=== PATIENT | female | born 1955 | race Caucasian/White ===

== ENCOUNTER 2018-11-13 08:53 | Emergency (ER) | payer MEDICARE, MEDICAID ==
--- NOTE | 2018-11-13 09:01 | EDM.PDOC ---
ED HPI GENERAL MEDICAL PROBLEM - General Chief Complaint: Respiratory Problem Stated Complaint: [facility] Time Seen by Provider: 11/13/18 08:57 Source of Information: Reports: Patient History Limitations: Reports: No Limitations - History of Present Illness INITIAL COMMENTS - FREE TEXT/NARRATIVE: Presents from the shelter because the patient choked on her breakfast ( eggs + romanian toast) and became SOB w/ Sa02 88% RA. These symptoms have now resolved. There was no vomiting. Patient denies any complaints and is in no acute distress. No URI complaints. Onset Date: 11/13/18 Onset Time: 08:00 Associated Symptoms: Reports: Shortness of Breath - Related Data Allergies Allergy/AdvReac Type Severity Reaction Status Date / Time No Known Allergies Allergy Verified 11/13/18 09:17 Home Meds: Home Meds Acetaminophen [Tylenol Extra Strength] 1,000 mg PO TID 11/09/13 [History] Cyanocobalamin (Vitamin B12) [Vitamin B12] 500 mcg PO DAILY 11/09/13 [History] Donepezil HCl [Aricept] 20 mg PO BEDTIME 11/09/13 [History] Clindamycin HCl 300 mg PO TID #30 capsule 11/13/18 [Rx] ClonazePAM [KlonoPIN] 0.5 mg PO DAILY 11/13/18 [History] Gabapentin [Neurontin] 100 mg PO BID 11/13/18 [History] Loratadine [Allergy] 10 mg PO 17 11/13/18 [History] Memantine HCl 10 mg PO BID 11/13/18 [History] OLANZapine [Olanzapine] 2.5 mg PO 11/13/18 [History] Polyethylene Glycol 3350 [Miralax] 17 gm PO DAILY 11/13/18 [History] Saccharomyces Boulardii [Florastor] 250 mg PO BID #20 capsule 11/13/18 [Rx] buPROPion [Wellbutrin] 50 mg PO DAILY 11/13/18 [History] Past Medical History Cardiovascular History: Denies: CAD Neurological History: Reports: Alzheimers Disease, Other (See Below) (Myoclonus) Psychiatric History: Reports: Anxiety, Depression, PTSD Other Endocrine/Metabolic History: Intrinsic Factor Deficiency Social & Family History - Tobacco Use Tobacco Use Within Last Twelve Months: No - Alcohol Use Alcohol Use History: No ED ROS GENERAL - Review of Systems Review Of Systems: ROS reveals no pertinent complaints other than HPI. ED EXAM, GENERAL - Physical Exam Exam: See Below Exam Limited By: No Limitations General Appearance: Alert, WD/WN, No Apparent Distress Ears: Normal External Exam Nose: Normal Inspection Throat/Mouth: Normal Inspection, No Airway Compromise Head: Atraumatic, Normocephalic Neck: Full Range of Motion Respiratory/Chest: No Respiratory Distress, Lungs Clear, Normal Breath Sounds Cardiovascular: Regular Rate, Rhythm, No Murmur GI/Abdominal: Soft, Non-Tender, No Distention Neurological: Alert Skin Exam: Warm, Dry, Intact Course - Vital Signs Last Recorded V/S: Last Vital Signs Temp 36.3 C 11/13/18 08:53 Pulse 82 11/13/18 09:42 Resp 16 11/13/18 09:42 BP 132/97 H 11/13/18 09:42 Pulse Ox 98 11/13/18 09:42 - Orders/Labs/Meds Orders: Active Orders 24 hr Category Date Time Status CXR [Chest 1V Frontal] [CR] Stat Exams 11/13/18 08:55 Taken CULTURE BLOOD [BC] Urgent Lab 11/13/18 09:32 Ordered CULTURE BLOOD [BC] Urgent Lab 11/13/18 09:32 Ordered Blood Culture x2 Reflex Set [OM.PC] Urgent Oth 11/13/18 09:32 Ordered Labs: Laboratory Tests 11/13/18 11/13/18 11/13/18 Range/Units 09:45 09:45 09:45 WBC 7.9 (4.5-12.0) X10-3/uL RBC 4.60 (3.23-5.20) x10(6)uL Hgb 14.2 (11.5-15.5) g/dL Hct 41.3 (30.0-51.3) % MCV 89.8 (80-96) fL MCH 30.9 (27.7-33.6) pg MCHC 34.4 (32.2-35.4) g/dL RDW 11.9 (11.5-15.5) % Plt Count 233 (125-369) X10(3)uL MPV 8.7 (7.4-10.4) fL Neut % (Auto) 60.0 (46-82) % Lymph % (Auto) 34.7 (13-37) % [place] % (Auto) 4.1 (4-12) % Eos % (Auto) 1 (1.0-5.0) % Baso % (Auto) 1 (0-2) % Neut # (Auto) 4.9 (1.6-8.3) # Lymph # (Auto) 2.7 (0.6-5.0) # [place] # (Auto) 0.3 (0.0-1.3) # Eos # (Auto) 0.0 (0.0-0.8) # Baso # (Auto) 0.0 (0.0-0.2) # Sodium 145 (135-145) mmol/L Potassium 4.0 (3.5-5.3) mmol/L Chloride 106 (100-110) mmol/L Carbon Dioxide 30 (21-32) mmol/L BUN 13 (7-18) mg/dL Creatinine 0.8 (0.55-1.02) mg/dL Est Cr Clr Drug Dosing 61.09 mL/min Estimated GFR (MDRD) > 60 (>60) BUN/Creatinine Ratio 16.3 (9-20) Glucose 103 (80-116) mg/dL Lactic Acid 0.8 (0.4-2.2) mmol/L Calcium 9.2 (8.6-10.2) mg/dL Total Bilirubin 0.8 (0.1-1.3) mg/dL AST 16 (5-25) IU/L ALT 35 (12-36) U/L Alkaline Phosphatase 103 (56-112) IU/L Total Protein 7.0 (6.0-8.0) g/dL Albumin 3.6 (3.2-4.6) g/dL Globulin 3.4 g/dL Albumin/Globulin Ratio 1.1 Meds: Medications Discontinued Medications Generic Name Dose Route Start Last Admin Trade Name Freq PRN Reason Stop Dose Admin Clindamycin HCl 300 mg 11/13/18 10:35 [place] PO 11/13/18 10:36 ONETIME ONE - Radiology Interpretation Free Text/Narrative:: CXR: LLL infiltrate, otherwise unremarkable. - Re-Assessments/Exams Free Text/Narrative Re-Assessment/Exam: 11/13/18 10:39 VSS, no respiratory distress. Departure - Departure Time of Disposition: 10:37 Disposition: Home, Self-Care 01 Condition: Good Clinical Impression: Aspiration pneumonia Qualifiers: Aspiration pneumonia type: unspecified Laterality: left Lung location: lower lobe of lung Qualified Code(s): J69.0 - Pneumonitis due to inhalation of food and vomit - Discharge Information *PRESCRIPTION DRUG MONITORING PROGRAM REVIEWED*: No *COPY OF PRESCRIPTION DRUG MONITORING REPORT IN PATIENT SHAUNA: Not Applicable Prescriptions: Clindamycin HCl 300 mg PO TID #30 capsule Saccharomyces Boulardii [Florastor] 250 mg PO BID #20 capsule Instructions: Aspiration Pneumonia Referrals: Martin Bennett MD [Primary Care Provider] - 3 Days Forms: ED Department Discharge Additional Instructions: Fill prescriptions for Clindamycin and Florastor and take as directed. Return to the ER if symptoms worsen. - My Orders Last 24 Hours: My Active Orders 11/13/18 08:55 CXR [Chest 1V Frontal] [CR] Stat 11/13/18 09:32 CULTURE BLOOD [BC] Urgent CULTURE BLOOD [BC] Urgent Blood Culture x2 Reflex Set [OM.PC] Urgent - Assessment/Plan Last 24 Hours: My Active Orders 11/13/18 08:55 CXR [Chest 1V Frontal] [CR] Stat 11/13/18 09:32 CULTURE BLOOD [BC] Urgent CULTURE BLOOD [BC] Urgent Blood Culture x2 Reflex Set [OM.PC] Urgent
[2018-11-13] MEDS ORDERED: Clindamycin HCl 150 MG Cap PO ONE (10:35)
[2018-11-13] MEDS ORDERED: Clindamycin Phosphate 600 MG/4 ML SDV IM ONE (10:51)
== END 2018-11-13 11:20 | disposition home or self-care (01) ==
LOC: FB.ED 08:53
DX: J69.0 Pneumonitis due to inhalation of food and vomit (principal); F41.9 Anxiety disorder, unspecified; F32.9 Major depressive disorder, single episode, unspecified; Z79.899 Other long term (current) drug therapy
CPT/HCPCS: 36415; 71045; 80053; 83605; 85025; 87040; 96372; 99285-25; J3490